=== PATIENT | female | born 1945 | race Caucasian/White ===

== ENCOUNTER → 2016-09-20 | Outpatient (CLI) | payer OTHER, BC ==
[~2016-09-20] VITALS: Ht 165.1 cm; Wt 65.9 kg
[~2016-09-20] MED LIST: ACID CONTROL150 MG PO; ADVAIR 100/501 DISK IH; ANUCORT-HC25 MG PR; ANUCORT-HC25 MG RC; ASPIR 8181 M1 PO; AVAPRO150 MG; BABY ASPIRIN81 M1; BENZONATATE200 MG PO; CENTRUM SILVER1 EAC3 PO; CENTRUM SILVER1 EAC4 PO; CHOLESTYRAMINE L4 GM PO; DERMAWERX SDS1 EACH TP; EFFEXOR XR75 MG PO; EFFEXOR75 MG PO; FLAGYL500 MG PO; FLAX OIL1000 MG PO; FLECTOR 1.3%1 PATC1; FLECTOR 1.3%1 PATC1 TD; HAIR, SKIN & N1 EAC1; IRBESARTAN150 MG PO; LEVAQUIN750 MG PO; LEXAPRO20 MG PO; LIDODERM 5% P1 PATCH TD; MYCOSTATIN 100,60 ML PO; NAPROSYN500 MG PO; NAPROXEN500 MG PO; NEXIUM40 MG PO; PROAIR HFA8.5 GM IH; PROCTOFOAM15 GM TP; PROMETHAZINE12.5 M1 PO; RECLAST5 MG/100 M IV; RESTASIS 01 DROP/0.4 BOTH EYES; SIMVASTATIN40 MG; SIMVASTATIN40 MG PO; TESSALON200 MG PO; TRAMADOL HCL50 MG PO; TRAZODONE HCL50 MG PO; TRIAMCINOLONE A15 GM TP; VITAMIN D1000 INTUN PO; ZANTAC150 MG PO
[2016-09-20 13:48] VITALS: BP 126/81
== END | disposition home or self-care (01) ==
LOC: IVINF 13:15
DX: M81.0 Age-related osteoporosis without current pathological fracture (principal); Z87.19 Personal history of other diseases of the digestive system; Z88.8 Allergy status to other drugs, medicaments and biological substances
CPT/HCPCS: 96365; J3489